=== PATIENT | male | born 1995 | race Two or more races ===

== ENCOUNTER 2021-04-28 01:01 | Emergency (ER) | payer SELFPAY ==
[~2021-04-28] VITALS: Ht 180.3 cm; Wt 110.0 kg
--- NOTE | 2021-04-28 01:29 | NUR ---
husbandry person: pt from lobby to room [phone]
[2021-04-28] MEDS ORDERED: LIDOCAINE-MPF 1%, 2ML ONE (02:17)
[2021-04-28] MEDS ORDERED: DIPH,PERTUSS(ACELL),TET VAC/PF 0.5 ML IM-VACC ONE ×2 (02:17→02:30)
[2021-04-28] MEDS ORDERED: LIDOCAINE-MPF 1%, 5ML INFIL ONE (02:30)
--- NOTE | 2021-04-28 02:47 | NUR ---
REPORT TO LUCI OCONNELL
[2021-04-28] MEDS ORDERED: NEOSPORIN OINT. PKT 1 PACKET ONE (03:06)
--- NOTE | 2021-04-28 03:14 | NUR ---
PT FINGER DRESSED WITH BANDAGE AND ANTIBIOTIC CREAM
[2021-04-28 03:15] VITALS: BP 133/74
== END 2021-04-28 03:17 | disposition home or self-care (01) ==
LOC: ED 02:45
DX: S61.215A Laceration without foreign body of left ring finger without damage to nail, initial encounter (principal); F17.210 Nicotine dependence, cigarettes, uncomplicated; W26.8XXA Contact with other sharp object(s), not elsewhere classified, initial encounter; Y93.89 Activity, other specified; Y92.69 Other specified industrial and construction area as the place of occurrence of the external cause; Y99.8 Other external cause status
CPT/HCPCS: 12042; 90471; 90715; 99406